=== PATIENT | female | born 1960 | race Caucasian/White ===

== ENCOUNTER 2017-04-30 08:51 | Observation (INO) ==
[2017-04-30] MEDS ORDERED: *HR* OxyCODONE/APAP 5/325 TABLET PO ONE ×2 (09:35→09:41)
--- NOTE | 2017-04-30 09:40 | Emergency Department Note ---
Disposition Clinical Impression: Intractable pain Disposition: Admitted As Inpatient Condition: Good Referrals: Jessica Gutierrez CNP [Primary Care Provider] - Forms: ED Satisfaction Letter General Adult HPI - General Chief complaint: ED Fall Stated complaint: Fall Time Seen by Provider: 04/30/17 09:00 Source: patient, EMS Limitations: no limitations - History of Present Illness HPI Narrative: Patient slipped on a slippery floor last night, sustaining an injury to her left leg. Went to bed about 15 minutes later with the help of her . Sustain a loss of consciousness. Pain is isolated to her left lower extremity. Workup this morning could not get out of bed due to pain. Denies numbness or weakness in the affected extremity or elsewhere in the body. No alcohol use this morning. No head neck or back pain. No chest pain or shortness of breath , no abdominal pain. No syncope or presyncope. She has chronic left hip pain due to bursitis but says it is worse this morning. Otherwise, the pain is worse in her knee and ankle, does not complain of pain in the mid thigh or lower leg. No pain in the upper extremities or in the right leg. Pain Scale: 7 - Related Data Home Medications Medication Instructions Recorded Confirmed Metoprolol 50 mg PO DAILY 08/22/15 08/22/15 Previous Rx's Medication Instructions Recorded Omeprazole [PriLOSEC] 20 mg PO DAILY@0730 capsule 08/26/15 Ondansetron [Zofran] 4 mg PO Q8HR PRN #20 tablet 08/26/15 Oxycodone HCl/Acetaminophen 1 each PO Q4-6H PRN #8 tablet 11/02/15 [Percocet 5-325 mg Tablet] Naproxen [Naprosyn] 250 mg PO BID PRN #14 tablet 07/02/16 Allergies Allergy/AdvReac Type Severity Reaction Status Date / Time acetaminophen [From Vicodin] Allergy Vomiting Verified 08/21/15 21:25 amitriptyline Allergy Vomiting Verified 08/21/15 21:25 codeine Allergy Vomiting Verified 08/21/15 21:25 hydrocodone [From Vicodin] Allergy Vomiting Verified 08/21/15 21:25 pentazocine [From Talwin] Allergy See Verified 08/21/15 21:25 Comments All systems ED: reviewed and negative except as stated. Past Medical History - Past Medical History Medical history: Reports: hypertension, osteoporosis Surgical history: Reports: appendectomy, orthopedic, other Psychiatric history: Reports: anxiety - Social History Smoking Status: Current every day smoker Smokeless Tobacco Status: No Alcohol use: Reports: rarely Drug use: Reports: marijuana Physical Exam Vital signs noted, please see nurses notes. General: Well-developed, well-nourished patient lying in bed who appears non- toxic. Head: Atraumatic, normocephalic, no signs of basilar skull fracture. Eyes: No ocular trauma. No proptosis. Extraocular motions intact. ENT: No facial or dental trauma. Neck: No midline tenderness, no stepoff or crepitus. Meets NEXUS criteria for clinical C-spine clearance. Not distracted by leg pain when I examine her neck. Back: No midline tenderness, no stepoff or crepitus. Chest: No crepitus or ecchymosis. Heart: Regular rate and rhythm. Lungs: Normal respiratory pattern without respiratory distress. Lungs clear to auscultation bilaterally. Abdomen: Soft, non-tender, non-distended, no guarding or peritoneal signs. No seatbelt sign. Pelvis: Stable, non-tender. Extremities: No deformity. Both arms and right leg are atraumatic. She has mild tenderness to palpation of the left hip. No tenderness to palpation of the proximal or mid thigh, nor at the distal thigh. Quadriceps contraction is intact. I do not feel a defect in the patellar tendon. No tenderness over the patella. She is tender over the proximal tibia on both sides. No tenderness to palpation of the lower leg, compartments are soft. She has bimalleolar tenderness at the posterior tip. No tenderness to palpation of the foot. The foot is well perfused. There is no ecchymosis, crepitus or deformity noted.. Neurologic: Awake, alert, oriented with normal speech and mental status, GCS 15. Pupils equal, round, reactive to light. Moves all extremities with 5/5 strength, light touch sensation normal and symmetrical in all extremities. No clinical evidence of intoxication. No altered level of alertness. No focal deficits or lateralizeing signs. Psychiatric: Extremely anxious and jumpy, especially when I approach to examine her leg. Skin: Warm and dry, no lacerations requiring sutures or sharath. - General Limitations: no limitations General appearance: alert Course Vital Signs Temperature 98.2 F 04/30/17 08:54 Pulse Rate 109 04/30/17 08:54 Respiratory Rate 16 04/30/17 08:54 Blood Pressure 153/96 04/30/17 08:54 O2 Sat by Pulse Oximetry 94 04/30/17 08:54 Temperature 98.2 F 04/30/17 08:54 Pulse Rate 100 04/30/17 09:52 Respiratory Rate 16 04/30/17 09:52 Blood Pressure 153/106 04/30/17 09:52 O2 Sat by Pulse Oximetry 95 04/30/17 09:52 Oxygen Delivery Oxygen Delivery Room Air Medical Decision Making - MDM Narrative Medical decision making narrative: XRs negative for fracture. Exam repeated - still no joint effusion, no change in exam. No palpable patellar tendon defect. Hip is less concerning, when I range her hip it is her knee and ankle that hurt her more. She is quite histrionic, but she refuses to bear weight, and both she and her say she can't use crutches based on previous experience. I discussed the case in detail with Dr. Kelley (Orthopedics), who recommended admission, he will evaluate on the floor; she would probably benefit from PT. Hospitalist accepts for admission.
[2017-04-30] MEDS ORDERED: *HR* Morphine 2 MG/ML SYRINGE SQ STA (11:26)
[2017-04-30] MEDS ORDERED: *HR* Morphine 2 MG/ML SYRINGE IVP ONE (11:42)
[2017-04-30] MEDS ORDERED: Naloxone 0.4 MG/ML INJ IVP PRN (13:46)
[2017-04-30] MEDS ORDERED: Ondansetron 4 MG/2 ML VIAL IVP PRN (13:46)
--- NOTE | 2017-04-30 14:05 | Internal Med History&Physical ---
Date of Encounter: 04/30/17 Time of Encounter: 13:00 Assessment and Plan (1) High ankle sprain of left lower extremity Current visit: Yes Status: Acute Qualifiers: Encounter type: initial encounter Qualified Code(s): S93.432A - Sprain of tibiofibular ligament of left ankle, initial encounter (2) Fall Current visit: Yes Status: Acute Qualifiers: Encounter type: initial encounter Qualified Code(s): W19.XXXA - Unspecified fall, initial encounter (3) Bursitis Current visit: Yes Status: Chronic Qualifiers: Bursitis location: hip Laterality: bilateral Qualified Code(s): M70.71 - Other bursitis of hip, right hip; M70.72 - Other bursitis of hip, left hip; M70.72 - Other bursitis of hip, left hip (4) HTN (hypertension), benign Current visit: Yes Status: Acute (5) Osteoporosis Current visit: Yes Status: Acute Qualifiers: Presence of current pathological fracture: without current pathological fracture Qualified Code(s): M81.0 - Age-related osteoporosis without current pathological fracture (6) Tobacco abuse Current visit: No Status: Chronic 56y/o female with hx of tobacco abuse, HTN, osteoporosis who presented to the ED after a fall. Xray of the ankle was negative for fracture but suggests ligament injury. She is still unable to weight bear in the ED despite analgesics , Ortho was notified and recommends pt should be admitted and they will be available for consult if needed. I will start patient on analgesics and antispasmodics. Will order a MRI of the ankle/LLE Will consult physical therapy to evaluate and treat Will order nicotine patch as needed for withdrawals. Resume anti-hypertensives Will place on inhalers prn for chest congestion. Anticipate discharge to home in 24 hours. Internal Medicine - H&P: HPI Chief complaint: Accidental Fall Admitted From: Home Plans for Post Hospital Care: Home History of present illness: Ms. Edwin Vyas is a 56 year old female who presented with a fall after she slipped and fell on newly polished hardwood floors. She said she was wearing stockings and decided to go up and grab something in another arie. She stepped from an area rug unto the hardwood floor, slipped and found herself on the floor. She said she did not hit her head and she did not loose consciousness but she was unable to get up afterwards because of severe pain in the left leg from her hip to her ankle. She says she has a history of bursitis and that has also flared up. She denies fever, chills, palpitations, chest pain or shortness of breath. Past Med Surg Social Fam HX - Past Medical History Medical history: hypertension, osteoporosis Psychiatric history: anxiety - Past Surgical History Surgical History: appendectomy, orthopedic, other - Social History Smoking Status: Current every day smoker Packs per day: 1 Smokeless Tobacco Status: No Alcohol use: rarely Drug use: marijuana - Family History Grandmother Adopted: No Living Status: Hx Family Cardiac Disorders: Yes Hx Family Respiratory Disorders: No Hx Family Cancer: No Hx Family GI Disorders: No Hx Family Endocrine Disorder: Yes (High Blood Sugars) Hx Family Neuromuscular Disorders: No Hx Family Neurologic Disorders: No Hx Family HEENT Disorders: Yes (Bad eyes) Hx Family Autoimmune Disorders: No Internal Medicine - H&P: Meds Alendronate Sodium [Fosamax] 70 mg PO QWEEK 04/30/17 [History] Lisinopril [Zestril] 10 mg PO DAILY 04/30/17 [History] Metoprolol XL (24 HR) Succ [Toprol XL] 50 mg PO DAILY 04/30/17 [History] 3 Allergy/AdvReac Type Severity Reaction Status Date / Time pentazocine [From Talwin] Allergy See Verified 04/30/17 12:20 Comments acetaminophen [From Vicodin] AdvReac Vomiting Verified 04/30/17 12:20 amitriptyline AdvReac Vomiting Verified 04/30/17 12:20 codeine AdvReac Vomiting Verified 04/30/17 12:20 hydrocodone [From Vicodin] AdvReac Vomiting Verified 04/30/17 12:20 All Systems PM: A 10-system review of systems was performed and is negative for pertinent findings except as documented above in the HPI. - Constitutional Constitutional: no chills, no fever(s), no night sweats - EENT Eyes: no change in vision, no discharge, no pain, no photophobia Ears: no ear discharge, no ear pain, no tinnitus Nose, mouth and throat: no dysphagia, no nasal discharge, no neck pain, no sore throat - Cardiovascular Cardiovascular ROS IM: no chest pain, no diaphoresis, no dyspnea, no lightheadedness, no palpitations, no syncope - Respiratory Respiratory: no cough, no dyspnea, no wheezing, no excessive phlegm production - Gastrointestinal Gastrointestinal: no abdominal pain, no diarrhea, no hematemesis, no hematochezia, no melena, no nausea, no vomiting - Genitourinary Genitourinary: no change in urinary stream, no dysuria, no flank pain, no hematuria - Musculoskeletal Musculoskeletal ROS IM: no numbness, no tingling - Integumentary Integumentary IM: no rash, no unusual bruising - Neurological Neurological ROS: no confusion, no convulsions, no focal weakness, no numbness, no tingling, no tremor(s) - Hematologic/Lymphatic Hematologic/Lymphatic: no easy bruising - Constitutional Vitals: Temp Pulse Resp BP Pulse Ox 98.2 F 81 16 158/98 97 04/30/17 08:54 04/30/17 12:44 04/30/17 12:44 04/30/17 12:44 04/30/17 12:44 General appearance: Present: A&O X 3 - Head Head exam: Present: atraumatic, normocephalic - Eye Eye exam: Present: PERRL, conjuntiva pink, sclera anicteric Pupils: Present: PERRL - Neck Neck exam general surgery: Present: supple, trachea midline. Absent: lymphadenopathy - Respiratory Respiratory exam: Present: CTAB. Absent: accessory muscle use, rales, rhonchi, wheezes - Cardiovascular Cardiovascular exam: Present: RRR, +S1, +S2. Absent: diastolic murmur, gallop, rubs, systolic murmur - GI/Abdominal GI/Abdominal exam: Present: normal bowel sounds, soft, no peritoneal signs. Absent: distended, tenderness - Extremities Exam Extremities exam: Present: warm, radial pulses palpable and symmetrical Additional comments: severe tenderness with touching the left lower extremity with extreme sensitivity to touch. no ankle swelling noted. Pt could not tolerate any form of Lower extremity motor examination. She could not dorsiflex her left ankle, reportedly due to pain. - Neurological Exam Neurological exam: Present: CN II-XII intact, oriented X3, no focal deficits. Absent: pronater drift, facial droop, speech deficit - Skin Skin exam: Present: dry, intact
[2017-04-30 14:49] LABS: Hematocrit 40.1 % (35.3-44.9); Hemoglobin 13.7 g/dL (11.5-15.4); Mean Corpuscular HGB Conc 34.2 g/dL (31.6-35.5); Mean Corpuscular Hemoglobin 35.3 pg (28.0-33.3); Mean Corpuscular Volume 103.4 fL (83.0-100.0); Mean Platelet Volume 9.1 fL (9.4-12.4); Platelet Count 209 K/mcL (140-400); Red Blood Count 3.88 M/mcL (3.82-4.97); Red Cell Distribution Width 13.8 % (11.5-14.5)
[2017-04-30 15:01] LABS: BUN/Creatinine Ratio 23 (6-26); Blood Urea Nitrogen 14 mg/dL (7-20); Calcium 9.1 mg/dL (8.6-10.8); Carbon Dioxide 26 mEq/L (19-29); Chloride 99 mEq/L (98-109); Glucose 100 mg/dL (70-99); Osmolality,Calculated 283 (280-300); Potassium 3.6 mEq/L (3.5-4.5); Sodium 136 mEq/L (136-145); eGFR For African Americans > 60 (> 60); eGFR For Non-African Americans > 60 (> 60)
[2017-04-30] MEDS: *HR* HYDROmorphone (PF) 1 MG/ML SYRINGE IVP PRN ×2 (15:13→21:15)
[2017-04-30] MEDS: Nicotine 21 MG PATCH.TD24 TD SCH (17:29)
[2017-04-30] MEDS ORDERED: *HR* Promethazine 25 MG/ML VIAL IVP ONE (21:48)
[2017-05-01] MEDS: *HR* HYDROmorphone (PF) 1 MG/ML SYRINGE IVP PRN (03:00)
[2017-05-01 05:55] LABS: BUN/Creatinine Ratio 18 (6-26); Blood Urea Nitrogen 11 mg/dL (7-20); Calcium 9.2 mg/dL (8.6-10.8); Carbon Dioxide 24 mEq/L (19-29); Chloride 100 mEq/L (98-109); Glucose 94 mg/dL (70-99); Osmolality,Calculated 279 (280-300); Sodium 135 mEq/L (136-145); eGFR For African Americans > 60 (> 60); eGFR For Non-African Americans > 60 (> 60)
[2017-05-01 05:57] LABS: Potassium 4.1 mEq/L (3.5-4.5)
[2017-05-01 06:06] LABS: Basophils % 0.6 %; Eosinophils # 0.2 K/mcL (0.0-0.6); Eosinophils % 3.1 %; Hematocrit 40.6 % (35.3-44.9); Hemoglobin 13.5 g/dL (11.5-15.4); Immature Granulocytes % 0.4 % (0-4); Lymphocytes # 1.3 K/mcL (0.6-4.6); Lymphocytes % 24.9 %; Mean Corpuscular HGB Conc 33.3 g/dL (31.6-35.5); Mean Corpuscular Volume 105.2 fL (83.0-100.0); Mean Platelet Volume 9.9 fL (9.4-12.4); Monocytes # 0.5 K/mcL (0.0-1.3); Monocytes % 9.8 %; Neutrophils # 3.2 K/mcL (1.6-8.9); Platelet Count 203 K/mcL (140-400); Red Blood Count 3.86 M/mcL (3.82-4.97); Red Cell Distribution Width 13.5 % (11.5-14.5); Segmented Neutrophils % 61.2 %
[2017-05-01] MEDS: Nicotine 21 MG PATCH.TD24 TD SCH (08:58)
[2017-05-01] MEDS ORDERED: Metoprolol XL (24 HR) Succ 50 MG TAB.ER.24H PO SCH (09:00)
--- NOTE | 2017-05-01 09:23 | Orthopedics Progress Note ---
Date of Encounter: 05/01/17 Time of Encounter: 09:20 - Assessment and Plan (1) Intractable pain Current Visit: Yes Status: Acute Imaging was reviewed and showed no signs of acute fracture/dislocation. No orthopedic surgical intervention needed. Ambulate with PT. Will s/o. Subjective Interval history: 56 yo F with left sided lower extremity pain after a fall yesterday. X-rays in ER showed no fx of hip/knee/ankle. Patient with diffuse pain and unable to ambulate so was admitted for observation. Patient complains of pain over left leg today. No swelling of hip/knee/ankle. Objective Vital signs: Vital Signs Temp Pulse Resp BP Pulse Ox 05/01/17 08:01 97.9 F 77 16 143/82 97 05/01/17 05:32 98.1 F 76 18 165/93 98 04/30/17 23:45 98.7 F 70 16 161/87 95 04/30/17 19:52 98.1 F 77 16 154/92 97 04/30/17 14:54 98.2 F 76 16 155/82 95 04/30/17 12:44 81 16 158/98 97 Intake and Output 04/30/17 05/01/17 05/01/17 23:59 07:59 15:59 Output Total 350 / 350 50 / 50 Balance -350 / -350 -50 / -50 Output: Urine 350 / 350 50 / 50 Other: Meal Refused # Voids 1 Weight 54.1 kg Patient Weight 05/01/17 23:59 Weight 54.1 kg Consult Exam: Constitutional -Vitals reviewed -The patient is well developed and well nourished. -Mood is pleasant. -The patient is well groomed. Psychiatric -The patient is fully alert and oriented x 3. Respiratory: -Respiratory effort normal Abdomen: -Soft abdomen -Non tender -Non distended: Left upper extremity: -No deformities. The overlying skin is intact. No obvious signs of acute trauma. -No tenderness to palpation throughout. -No significant pain with passive motion of the shoulder, elbow, wrist, and fingers within the limits of the bed. -Able to make an "OK" sign, cross the index and long fingers, and extend the thumb. -Sensation grossly intact to light touch throughout the median, radial, and ulnar distributions. -Radial pulse is present; Fingers have good capillary refill. Right upper extremity: -No deformities. The overlying skin is intact. No obvious signs of acute trauma. -No tenderness to palpation throughout. -No significant pain with passive motion of the shoulder, elbow, wrist, and fingers within the limits of the bed. -Able to make an "OK" sign, cross the index and long fingers, and extend the thumb. -Sensation grossly intact to light touch throughout the median, radial, and ulnar distributions. -Radial pulse is present; Fingers have good capillary refill. Left lower extremity: -No deformities. The overlying skin is intact. No obvious signs of acute trauma. -Diffusely TTP throughout lower extremity. -Exam limited, patient refuses to allow ROM of the left leg -Sensation is grossly intact to light touch throughout the sural, saphenous, superficial peroneal, and deep peroneal distributions. -Toes have good capillary refill. Right lower extremity: -No deformities. The overlying skin is intact. No obvious signs of acute trauma. -No tenderness to palpation throughout. -No pain with passive motion of the hip, knee, ankle, and toes within the limits of the bed. -No pain with axial loading of the thigh. -Able to dorsiflex and plantarflex the ankle and toes. -Sensation is grossly intact to light touch throughout the sural, saphenous, superficial peroneal, and deep peroneal distributions. -Toes have good capillary refill. - Diagnostic Results Hip x-ray: report reviewed, image reviewed Knee x-ray: report reviewed, image reviewed Ankle x-ray: report reviewed, image reviewed Ankle MRI: report reviewed, image reviewed - Labs CBC & BMP: 05/01/17 05:24 05/01/17 05:24 Labs: Abnormal lab results MCV 105.2 fL (83.0-100.0) H 05/01/17 05:24 MCH 35.0 pg (28.0-33.3) H 05/01/17 05:24 Sodium 135 mEq/L (136-145) L 05/01/17 05:24 Calculated Osmolality 279 (280-300) L 05/01/17 05:24 Consult Discharge Plan - Plan Referrals: Jessica Gutierrez, AMITA [Primary Care Provider] -
[2017-05-01 11:37] VITALS: BP 116/75
--- NOTE | 2017-05-01 12:27 | Discharge Summary ---
Date of Encounter: 05/01/17 Time of Encounter: 09:00 - Discharge Diagnosis (1) Fall Priority: Primary Status: Acute Qualifiers: Encounter type: initial encounter Qualified Code(s): W19.XXXA - Unspecified fall, initial encounter (2) Ankle pain Priority: Primary Status: Acute Qualifiers: Chronicity: acute Laterality: left Qualified Code(s): M25.572 - Pain in left ankle and joints of left foot (3) Tobacco abuse Priority: Secondary Status: Chronic (4) HTN (hypertension), benign Priority: Secondary Status: Chronic (5) Osteoporosis Priority: Secondary Status: Chronic Qualifiers: Osteoporosis type: unspecified Presence of current pathological fracture: without current pathological fracture Qualified Code(s): M81.0 - Age-related osteoporosis without current pathological fracture - Discharge Medications Prescriptions: Cyclobenzaprine [Flexeril] 10 mg PO TID PRN #30 tablet PRN Reason: Spasms Home Medications: Alendronate Sodium [Fosamax] 70 mg PO QWEEK 04/30/17 [History] Lisinopril [Zestril] 10 mg PO DAILY 04/30/17 [History] Metoprolol XL (24 HR) Succ [Toprol Xl] 50 mg PO DAILY 04/30/17 [History] Cyclobenzaprine [Flexeril] 10 mg PO TID PRN #30 tablet 05/01/17 [Rx] Allergies/Adverse Reactions: 3 Allergy/AdvReac Type Severity Reaction Status Date / Time pentazocine [From Talwin] Allergy See Verified 04/30/17 12:20 Comments acetaminophen [From Vicodin] AdvReac Vomiting Verified 04/30/17 12:20 amitriptyline AdvReac Vomiting Verified 04/30/17 12:20 codeine AdvReac Vomiting Verified 04/30/17 12:20 hydrocodone [From Vicodin] AdvReac Vomiting Verified 04/30/17 12:20 Procedures/tests Complete & Pending: Procedures Performed prior 72 hours Category Date Time Status MR ankle LT wo con [MR] Stat MRI 04/30/17 14:31 Completed MR foot LT wo con [MR] Stat MRI 04/30/17 14:31 Completed Date of admission: 04/30/17 12:32 Primary care physician: Jessica Gutierrez Consults: 04/30/17 13:49 Consult to Physical Therapy [CONS] Routine Comment: Evaluate, develop and implement POC Reason for Consult: diff ambulating Discharging clinician: Susanna Pearce Anticipated date of discharge: 05/01/17 - Patient Status Disposition: Home, Self-Care Condition: Good Functional capacity at discharge: independent ambulation Overall status at discharge: patient is progressing back to baseline - Discharge Instructions Instructions: Ankle Sprain (DC) Follow Up With: Maryanne Mojica CNP [Advanced Practice Nurse] - 05/08/17 10:15 am ([place] [facility]) Additional Instructions: F/up with outpatient PT - Diet and Activity Activity: as per physical therapy, increase activity as tolerated Diet: low fat, low cholesterol, low salt diet Hospital course: Ms. Edwin Vyas is a 56 year old female with the above medical problems, admitted with left knee and ankle pain following a mechanical fall after slipping on her floor. Initial left hip, knee and ankle XRays done in the ER showed no acute fracture/dislocation/trauma. Labs were WNL. MRI left foot was done which showed no acute trauma. Orthopedics evaluation was completed and recommended no further intervention. PT/OT evaluation recommend outpatient therapy and she is being discharged in a stable condition. - Time Spent with Patient Total time spent providing and/or coordinating discharge services: Greater than 30 minutes (40 min) - Constitutional Vitals: Temp Pulse Resp BP Pulse Ox 97.9 F 76 16 116/75 96 05/01/17 11:35 05/01/17 11:35 05/01/17 11:35 05/01/17 11:35 05/01/17 11:35 General appearance: Present: cachectic, A&O X 3, answers questions appropriately - Extremities Exam Extremities exam: Present: warm, radial pulses palpable and symmetrical. Absent : calf tenderness, cyanotic, pedal edema Additional comments: tenderness over medial left knee, lower leg and ankle; no swelling or erythema
== END 2017-05-01 13:38 | disposition home or self-care (01) ==
LOC: 3ANU 08:51 → EMEROO 08:51 → 3ANU 13:00
PROVIDERS: ADMIT Family Medicine; ATTEND Internal Medicine

== ENCOUNTER 2021-04-28 11:01 | Inpatient (IN) ==
[2021-04-28] MEDS ORDERED: *HR* FentaNYL (PF) 100 MCG/2 ML VIAL IVP ONE (11:13)
[2021-04-28] MEDS ORDERED: *HR* HYDROmorphone (PF) 1 MG/ML SYRINGE IVP ONE (12:30)
[2021-04-28 13:45] LABS: Basophils % 0.1 %; Eosinophils % 0.3 %; Hematocrit 43.5 % (35.3-44.9); Hemoglobin 14.5 g/dL (11.5-15.4); Immature Granulocytes % 0.3 % (0-4); Lymphocytes # 0.8 K/mcL (0.6-4.6); Lymphocytes % 9.1 %; Mean Corpuscular HGB Conc 33.3 g/dL (31.6-35.5); Mean Corpuscular Hemoglobin 34.3 pg (28.0-33.3); Mean Corpuscular Volume 102.8 fL (83.0-100.0); Mean Platelet Volume 10.8 fL (9.4-12.4); Monocytes # 0.5 K/mcL (0.0-1.3); Monocytes % 5.1 %; Neutrophils # 7.9 K/mcL (1.6-8.9); Platelet Count 199 K/mcL (140-400); Red Blood Count 4.23 M/mcL (3.82-4.97); Red Cell Distribution Width 12.1 % (11.5-14.5); Segmented Neutrophils % 85.1 %; White Blood Count 9.2 K/mcL (4.3-11.1)
[2021-04-28] MEDS ORDERED: Ondansetron 4 MG/2 ML VIAL ONE (13:51)
[2021-04-28 14:02] LABS: BUN/Creatinine Ratio 26 (6-26); Blood Urea Nitrogen 14 mg/dL (6-20); Calcium 9.8 mg/dL (8.6-10.3); Carbon Dioxide 22 mEq/L (23-29); Chloride 103 mEq/L (98-107); Glucose 101 mg/dL (70-105); Osmolality,Calculated 285 (280-300); Potassium 3.7 mEq/L (3.5-5.1); Sodium 137 mEq/L (136-145); eGFR For African Americans > 60 (> 60); eGFR For Non-African Americans > 60 (> 60)
[2021-04-28] MEDS ORDERED: Ondansetron ODT 4 MG TAB.RAPDIS SL PRN (14:51)
[2021-04-28] MEDS ORDERED: *HR* Promethazine 25 MG/ML VIAL IM PRN (14:51)
[2021-04-28] MEDS ORDERED: Naloxone 0.4 MG/ML INJ IVP PRN (14:51)
[2021-04-28] MEDS ORDERED: Mag Hydrox/Al Hydrox/Simeth 30 ML UDC PO PRN (14:51)
[2021-04-28] MEDS ORDERED: Acetaminophen 325 MG TABLET PO PRN (14:51)
[2021-04-28] MEDS ORDERED: CeFAZolin 2,000 MG/120 ML BAG IVPB SCH (16:00)
[2021-04-28 16:30] LABS: Influenza A PCR Negative (Negative); Influenza B PCR Negative (Negative); Resp. Syncytial Virus PCR Negative (Negative)
[2021-04-28 16:37] LABS: SARS-CoV-2 by PCR (In House) Negative (Negative)
[2021-04-28] MEDS: Metoprolol XL (24 HR) Succ 50 MG TAB.ER.24H PO SCH (17:09)
[2021-04-28] MEDS: *HR* HYDROmorphone (PF) 1 MG/ML SYRINGE IVP PRN ×2 (17:15→21:24)
[2021-04-28] MEDS ORDERED: Nitroglycerin 0.4 MG TAB.SUBL SL PRN (23:11)
[2021-04-28] MEDS ORDERED: Ketorolac 30 MG/ML VIAL IVP ONE (23:59)
[2021-04-29] MEDS: Ondansetron 4 MG/2 ML VIAL IVP PRN ×3 (00:17→18:43)
[2021-04-29] MEDS: *HR* HYDROmorphone (PF) 1 MG/ML SYRINGE IVP PRN ×3 (04:55→22:50)
[2021-04-29 06:25] LABS: Basophils % 0.2 %; Eosinophils % 0.2 %; Hematocrit 38.9 % (35.3-44.9); Immature Granulocytes % 0.4 % (0-4); Lymphocytes # 0.9 K/mcL (0.6-4.6); Lymphocytes % 16.9 %; Mean Corpuscular HGB Conc 32.6 g/dL (31.6-35.5); Mean Platelet Volume 10.4 fL (9.4-12.4); Monocytes # 0.6 K/mcL (0.0-1.3); Monocytes % 11.4 %; Neutrophils # 3.9 K/mcL (1.6-8.9); Platelet Count 175 K/mcL (140-400); Red Blood Count 3.74 M/mcL (3.82-4.97); Segmented Neutrophils % 70.9 %; White Blood Count 5.5 K/mcL (4.3-11.1)
[2021-04-29 06:37] LABS: Hemoglobin 12.7 g/dL (11.5-15.4)
[2021-04-29 06:44] LABS: BUN/Creatinine Ratio 22 (6-26); Blood Urea Nitrogen 12 mg/dL (6-20); Calcium 9.3 mg/dL (8.6-10.3); Carbon Dioxide 28 mEq/L (23-29); Chloride 100 mEq/L (98-107); Glucose 122 mg/dL (70-105); Osmolality,Calculated 283 (280-300); Potassium 3.7 mEq/L (3.5-5.1); Sodium 136 mEq/L (136-145); eGFR For African Americans > 60 (> 60); eGFR For Non-African Americans > 60 (> 60)
[2021-04-29] MEDS ORDERED: *HR* Propofol 200 MG/20 ML VIAL IVP ONE (07:11)
[2021-04-29] MEDS ORDERED: Ondansetron 4 MG/2 ML VIAL ONE (07:11)
[2021-04-29] MEDS ORDERED: Lidocaine -MPF 2% 5 ML VIAL ONE (07:11)
[2021-04-29] MEDS ORDERED: *HR* FentaNYL (PF) 100 MCG/2 ML VIAL ONE (07:11)
[2021-04-29] MEDS: Metoprolol XL (24 HR) Succ 50 MG TAB.ER.24H PO SCH (07:17)
[2021-04-29] MEDS ORDERED: CeFAZolin Syr 2,000MG/20 ML 2,000 MG/20 ML SYRINGE IVPB ONE (07:42)
[2021-04-29] MEDS ORDERED: Ringers Solution, Lactated 1,000 ML IVC SCH (07:45)
[2021-04-29] MEDS ORDERED: *HR* HYDROmorphone PF 0.5 MG/0.5 ML SYRINGE IVP PRN ×2 (07:51→10:28)
[2021-04-29] MEDS ORDERED: Acetaminophen IV 1,000 MG/100 ML BAG IVPB ONE (08:21)
[2021-04-29] MEDS ORDERED: Ketorolac 30 MG/ML VIAL ONE (08:49)
[2021-04-29] MEDS: *HR* FentaNYL (PF) 100 MCG/2 ML VIAL IVP PRN ×4 (09:20→09:36)
[2021-04-29] MEDS ORDERED: Scopolamine Patch 1.5 MG PATCH.TD72 TD ONE (09:33)
[2021-04-29] MEDS ORDERED: Acetaminophen 325 MG TABLET PO PRN (10:28)
[2021-04-29] MEDS ORDERED: Nitroglycerin 0.4 MG TAB.SUBL SL PRN (10:28)
[2021-04-29] MEDS ORDERED: *HR* Midazolam HCl 2 MG/2 ML VIAL IVP PRN (10:28)
[2021-04-29] MEDS ORDERED: Naloxone 0.4 MG/ML INJ IVP PRN (10:28)
[2021-04-29] MEDS ORDERED: Mag Hydrox/Al Hydrox/Simeth 30 ML UDC PO PRN (10:28)
[2021-04-29] MEDS: *HR* Promethazine 25 MG/ML VIAL IM PRN (11:06)
[2021-04-29] MEDS: Ringers Solution, Lactated 1,000 ML IVC SCH (11:37)
[2021-04-29] MEDS: CeFAZolin 2 GM/120 ML BAG IVPB SCH (16:26)
[2021-04-29] MEDS: Nicotine 21 MG PATCH.TD24 TD SCH (17:41)
[2021-04-30] MEDS: CeFAZolin 2 GM/120 ML BAG IVPB SCH (00:03)
[2021-04-30 05:16] LABS: Immature Granulocytes % 0.4 % (0-4); Lymphocytes # 0.8 K/mcL (0.6-4.6); Lymphocytes % 8.2 %; Mean Corpuscular HGB Conc 33.6 g/dL (31.6-35.5); Mean Corpuscular Hemoglobin 34.7 pg (28.0-33.3); Mean Corpuscular Volume 103.1 fL (83.0-100.0); Mean Platelet Volume 10.5 fL (9.4-12.4); Monocytes # 0.8 K/mcL (0.0-1.3); Monocytes % 7.5 %; Neutrophils # 8.5 K/mcL (1.6-8.9); Platelet Count 169 K/mcL (140-400); Red Cell Distribution Width 11.8 % (11.5-14.5); Segmented Neutrophils % 83.9 %
[2021-04-30 05:17] LABS: Hemoglobin 11.1 g/dL (11.5-15.4); White Blood Count 10.1 K/mcL (4.3-11.1)
[2021-04-30 05:54] LABS: BUN/Creatinine Ratio 26 (6-26); Blood Urea Nitrogen 12 mg/dL (6-20); Carbon Dioxide 28 mEq/L (23-29); Chloride 103 mEq/L (98-107); Glucose 129 mg/dL (70-105); Osmolality,Calculated 285 (280-300); Potassium 3.9 mEq/L (3.5-5.1); Sodium 137 mEq/L (136-145); eGFR For African Americans > 60 (> 60); eGFR For Non-African Americans > 60 (> 60)
[2021-04-30] MEDS: Metoprolol XL (24 HR) Succ 50 MG TAB.ER.24H PO SCH (08:33)
[2021-04-30] MEDS: Nicotine 21 MG PATCH.TD24 TD SCH (08:33)
[2021-04-30] MEDS: Aspirin Enteric Coated 325 MG Tablet PO SCH ×2 (08:33→08:35)
[2021-04-30] MEDS: *HR* HYDROmorphone (PF) 1 MG/ML SYRINGE IVP PRN ×4 (11:08→23:39)
[2021-04-30] MEDS: Ringers Solution, Lactated 1,000 ML IVC SCH (15:18)
[2021-04-30] MEDS ORDERED: *HR* HYDROcodone/Acet 5/325 mg TABLET PO PRN (22:07)
[2021-04-30] MEDS: *HR* OxyCODONE Immed Rel 5 MG TABLET PO PRN (22:19)
[2021-05-01] MEDS: Metoprolol XL (24 HR) Succ 50 MG TAB.ER.24H PO SCH (07:33)
[2021-05-01] MEDS: Aspirin Enteric Coated 325 MG Tablet PO SCH (07:33)
[2021-05-01] MEDS: Nicotine 21 MG PATCH.TD24 TD SCH (07:33)
[2021-05-01 08:17] LABS: Basophils % 0.3 %; Eosinophils % 0.3 %; Hematocrit 32.8 % (35.3-44.9); Hemoglobin 10.7 g/dL (11.5-15.4); Immature Granulocytes % 0.3 % (0-4); Lymphocytes # 1.3 K/mcL (0.6-4.6); Lymphocytes % 19.1 %; Mean Corpuscular HGB Conc 32.6 g/dL (31.6-35.5); Mean Corpuscular Hemoglobin 33.8 pg (28.0-33.3); Mean Corpuscular Volume 103.5 fL (83.0-100.0); Mean Platelet Volume 10.6 fL (9.4-12.4); Monocytes # 0.8 K/mcL (0.0-1.3); Monocytes % 11.3 %; Neutrophils # 4.8 K/mcL (1.6-8.9); Platelet Count 146 K/mcL (140-400); Red Blood Count 3.17 M/mcL (3.82-4.97); Red Cell Distribution Width 11.9 % (11.5-14.5); Segmented Neutrophils % 68.7 %
[2021-05-01 08:35] LABS: BUN/Creatinine Ratio 33 (6-26); Blood Urea Nitrogen 14 mg/dL (6-20); Carbon Dioxide 28 mEq/L (23-29); Chloride 100 mEq/L (98-107); Glucose 101 mg/dL (70-105); Osmolality,Calculated 283 (280-300); Potassium 3.7 mEq/L (3.5-5.1); Sodium 136 mEq/L (136-145); eGFR For African Americans > 60 (> 60); eGFR For Non-African Americans > 60 (> 60)
[2021-05-01] MEDS: *HR* HYDROmorphone (PF) 1 MG/ML SYRINGE IVP PRN ×4 (09:39→22:35)
[2021-05-01] MEDS: Ringers Solution, Lactated 1,000 ML IVC SCH (10:49)
[2021-05-01] MEDS: *HR* OxyCODONE Immed Rel 5 MG TABLET PO PRN (12:49)
[2021-05-01] MEDS: Apixaban 5 MG TABLET PO SCH (17:12)
[2021-05-02] MEDS: *HR* HYDROmorphone (PF) 1 MG/ML SYRINGE IVP PRN ×6 (02:53→20:29)
[2021-05-02 03:25] LABS: Basophils % 0.3 %; Eosinophils # 0.1 K/mcL (0.0-0.6); Eosinophils % 0.9 %; Hematocrit 35.5 % (35.3-44.9); Hemoglobin 11.7 g/dL (11.5-15.4); Immature Granulocytes % 0.3 % (0-4); Lymphocytes # 1.2 K/mcL (0.6-4.6); Lymphocytes % 17.7 %; Mean Corpuscular Volume 103.2 fL (83.0-100.0); Mean Platelet Volume 10.9 fL (9.4-12.4); Monocytes # 0.8 K/mcL (0.0-1.3); Neutrophils # 4.7 K/mcL (1.6-8.9); Platelet Count 122 K/mcL (140-400); Red Blood Count 3.44 M/mcL (3.82-4.97); Red Cell Distribution Width 11.7 % (11.5-14.5); Segmented Neutrophils % 68.8 %; White Blood Count 6.9 K/mcL (4.3-11.1)
[2021-05-02 03:40] LABS: BUN/Creatinine Ratio 28 (6-26); Blood Urea Nitrogen 11 mg/dL (6-20); Carbon Dioxide 24 mEq/L (23-29); Chloride 99 mEq/L (98-107); Glucose 100 mg/dL (70-105); Osmolality,Calculated 275 (280-300); Potassium 3.8 mEq/L (3.5-5.1); Sodium 133 mEq/L (136-145); eGFR For African Americans > 60 (> 60); eGFR For Non-African Americans > 60 (> 60)
[2021-05-02] MEDS: *HR* OxyCODONE Immed Rel 5 MG TABLET PO PRN (06:36)
[2021-05-02] MEDS: Metoprolol XL (24 HR) Succ 50 MG TAB.ER.24H PO SCH (08:32)
[2021-05-02] MEDS: Apixaban 5 MG TABLET PO SCH (08:32)
[2021-05-02] MEDS: Nicotine 21 MG PATCH.TD24 TD SCH (08:35)
[2021-05-02] MEDS ORDERED: Ketorolac 30 MG/ML VIAL IVP ONE (11:08)
[2021-05-02] MEDS: Sennosides/Docusate Sodium TABLET PO SCH (12:26)
[2021-05-02] MEDS: Ringers Solution, Lactated 1,000 ML IVC SCH (12:26)
[2021-05-03] MEDS: *HR* HYDROmorphone (PF) 1 MG/ML SYRINGE IVP PRN ×7 (00:01→21:39)
[2021-05-03] MEDS: Apixaban 5 MG TABLET PO SCH ×3 (01:03→21:39)
[2021-05-03 05:09] LABS: Basophils % 0.1 %; Eosinophils % 0.4 %; Hematocrit 29.5 % (35.3-44.9); Hemoglobin 10.4 g/dL (11.5-15.4); Immature Granulocytes % 0.4 % (0-4); Lymphocytes % 13.4 %; Mean Corpuscular HGB Conc 35.3 g/dL (31.6-35.5); Mean Corpuscular Volume 99.3 fL (83.0-100.0); Mean Platelet Volume 10.4 fL (9.4-12.4); Monocytes # 0.9 K/mcL (0.0-1.3); Monocytes % 11.5 %; Neutrophils # 5.7 K/mcL (1.6-8.9); Platelet Count 156 K/mcL (140-400); Red Blood Count 2.97 M/mcL (3.82-4.97); Red Cell Distribution Width 11.4 % (11.5-14.5); Segmented Neutrophils % 74.2 %; White Blood Count 7.7 K/mcL (4.3-11.1)
[2021-05-03 05:44] LABS: BUN/Creatinine Ratio 26 (6-26); Blood Urea Nitrogen 10 mg/dL (6-20); Carbon Dioxide 25 mEq/L (23-29); Chloride 98 mEq/L (98-107); Glucose 126 mg/dL (70-105); Osmolality,Calculated 277 (280-300); Potassium 3.7 mEq/L (3.5-5.1); Sodium 133 mEq/L (136-145); eGFR For African Americans > 60 (> 60); eGFR For Non-African Americans > 60 (> 60)
[2021-05-03] MEDS: Nicotine 21 MG PATCH.TD24 TD SCH (08:05)
[2021-05-03] MEDS: Sennosides/Docusate Sodium TABLET PO SCH (08:05)
[2021-05-03] MEDS: Metoprolol XL (24 HR) Succ 50 MG TAB.ER.24H PO SCH (08:05)
[2021-05-03] MEDS: *HR* OxyCODONE Immed Rel 5 MG TABLET PO PRN ×3 (09:34→22:55)
[2021-05-03] MEDS: *HR* Promethazine 25 MG/ML VIAL IM PRN (12:18)
[2021-05-03] MEDS: Ondansetron 4 MG/2 ML VIAL IVP PRN (22:59)
[2021-05-04] MEDS: *HR* HYDROmorphone (PF) 1 MG/ML SYRINGE IVP PRN ×4 (04:36→17:19)
[2021-05-04 07:24] LABS: Basophils % 0.2 %; Eosinophils # 0.1 K/mcL (0.0-0.6); Eosinophils % 1.7 %; Hematocrit 28.3 % (35.3-44.9); Hemoglobin 9.6 g/dL (11.5-15.4); Immature Granulocytes % 0.3 % (0-4); Lymphocytes # 0.7 K/mcL (0.6-4.6); Lymphocytes % 11.4 %; Mean Corpuscular HGB Conc 33.9 g/dL (31.6-35.5); Mean Corpuscular Hemoglobin 33.9 pg (28.0-33.3); Mean Platelet Volume 10.2 fL (9.4-12.4); Monocytes # 0.9 K/mcL (0.0-1.3); Monocytes % 14.6 %; Neutrophils # 4.3 K/mcL (1.6-8.9); Platelet Count 171 K/mcL (140-400); Red Blood Count 2.83 M/mcL (3.82-4.97); Red Cell Distribution Width 11.5 % (11.5-14.5); Segmented Neutrophils % 71.8 %
[2021-05-04 07:41] LABS: BUN/Creatinine Ratio 26 (6-26); Blood Urea Nitrogen 10 mg/dL (6-20); Calcium 8.9 mg/dL (8.6-10.3); Carbon Dioxide 30 mEq/L (23-29); Chloride 96 mEq/L (98-107); Glucose 129 mg/dL (70-105); Osmolality,Calculated 277 (280-300); Potassium 3.6 mEq/L (3.5-5.1); Sodium 133 mEq/L (136-145); eGFR For African Americans > 60 (> 60); eGFR For Non-African Americans > 60 (> 60)
[2021-05-04] MEDS: Apixaban 5 MG TABLET PO SCH ×2 (08:07→20:23)
[2021-05-04] MEDS: *HR* OxyCODONE Immed Rel 5 MG TABLET PO PRN ×2 (08:07→14:06)
[2021-05-04] MEDS: Metoprolol XL (24 HR) Succ 50 MG TAB.ER.24H PO SCH (08:07)
[2021-05-04] MEDS: Nicotine 21 MG PATCH.TD24 TD SCH (08:08)
[2021-05-04] MEDS: Ringers Solution, Lactated 1,000 ML IVC SCH ×2 (08:08→11:49)
[2021-05-04] MEDS: Sennosides/Docusate Sodium TABLET PO SCH (08:11)
[2021-05-04] MEDS: Gabapentin 300 MG CAPSULE PO SCH ×3 (11:48→21:02)
[2021-05-04] MEDS ORDERED: *HR* LORazepam 2 MG/ML VIAL IVP ONE (15:16)
[2021-05-04] MEDS: *HR* OxyCODONE Immed Rel 5 MG TABLET PO SCH (20:23)
[2021-05-04] MEDS: tiZANidine 4 MG TABLET PO SCH (21:02)
[2021-05-04] MEDS ORDERED: *HR* LORazepam 2 MG/ML VIAL IVP PRN (21:12)
[2021-05-04] MEDS ORDERED: Morphine Sulfate 2 MG/ML SYRINGE IVP ONE (21:49)
[2021-05-05] MEDS: *HR* OxyCODONE Immed Rel 5 MG TABLET PO SCH ×4 (03:32→20:15)
[2021-05-05 07:43] LABS: Basophils % 0.2 %; Eosinophils # 0.1 K/mcL (0.0-0.6); Eosinophils % 2.2 %; Hematocrit 28.9 % (35.3-44.9); Hemoglobin 9.6 g/dL (11.5-15.4); Immature Granulocytes % 0.5 % (0-4); Lymphocytes # 0.9 K/mcL (0.6-4.6); Lymphocytes % 15.9 %; Mean Corpuscular HGB Conc 33.2 g/dL (31.6-35.5); Mean Corpuscular Hemoglobin 33.4 pg (28.0-33.3); Mean Corpuscular Volume 100.7 fL (83.0-100.0); Mean Platelet Volume 10.1 fL (9.4-12.4); Monocytes # 0.7 K/mcL (0.0-1.3); Monocytes % 12.4 %; Neutrophils # 4.1 K/mcL (1.6-8.9); Platelet Count 217 K/mcL (140-400); Red Blood Count 2.87 M/mcL (3.82-4.97); Red Cell Distribution Width 11.5 % (11.5-14.5); Segmented Neutrophils % 68.8 %; White Blood Count 5.9 K/mcL (4.3-11.1)
[2021-05-05 08:03] LABS: BUN/Creatinine Ratio 37 (6-26); Blood Urea Nitrogen 14 mg/dL (6-20); Calcium 9.3 mg/dL (8.6-10.3); Carbon Dioxide 29 mEq/L (23-29); Chloride 97 mEq/L (98-107); Glucose 110 mg/dL (70-105); Osmolality,Calculated 279 (280-300); Potassium 3.8 mEq/L (3.5-5.1); Sodium 134 mEq/L (136-145); eGFR For African Americans > 60 (> 60); eGFR For Non-African Americans > 60 (> 60)
[2021-05-05] MEDS: tiZANidine 4 MG TABLET PO SCH ×3 (08:23→20:15)
[2021-05-05] MEDS ORDERED: *HR* LORazepam 0.5 MG TABLET PO PRN (08:23)
[2021-05-05] MEDS: Apixaban 5 MG TABLET PO SCH ×2 (08:23→20:16)
[2021-05-05] MEDS: Metoprolol XL (24 HR) Succ 50 MG TAB.ER.24H PO SCH (08:23)
[2021-05-05] MEDS: Sennosides/Docusate Sodium TABLET PO SCH (08:24)
[2021-05-05] MEDS: Nicotine 21 MG PATCH.TD24 TD SCH (08:24)
[2021-05-05] MEDS: Gabapentin 300 MG CAPSULE PO SCH ×3 (08:24→20:15)
[2021-05-05] MEDS ORDERED: *HR* HYDROmorphone (PF) 1 MG/ML SYRINGE IVP PRN (08:24)
[2021-05-05] MEDS: *HR* OxyCODONE Immed Rel 5 MG TABLET PO PRN (10:06)
[2021-05-05] MEDS: Ringers Solution, Lactated 1,000 ML IVC SCH (11:18)
[2021-05-05] MEDS: Ondansetron 4 MG/2 ML VIAL IVP PRN (11:30)
[2021-05-05] MEDS: *HR* Promethazine 25 MG/ML VIAL IM PRN (13:40)
[2021-05-06] MEDS: *HR* OxyCODONE Immed Rel 5 MG TABLET PO SCH ×2 (01:45→07:59)
[2021-05-06] MEDS: tiZANidine 4 MG TABLET PO SCH ×3 (09:02→20:39)
[2021-05-06] MEDS: Metoprolol XL (24 HR) Succ 50 MG TAB.ER.24H PO SCH (09:02)
[2021-05-06] MEDS: Nicotine 21 MG PATCH.TD24 TD SCH (09:03)
[2021-05-06] MEDS: Apixaban 5 MG TABLET PO SCH ×2 (09:03→20:39)
[2021-05-06] MEDS: Gabapentin 300 MG CAPSULE PO SCH ×3 (09:03→20:39)
[2021-05-06] MEDS: Ringers Solution, Lactated 1,000 ML IVC SCH (11:45)
[2021-05-06] MEDS: hydrOXYzine pamoate 25 MG CAPSULE PO PRN (15:59)
[2021-05-06 16:40] LABS: Basophils % 0.2 %; Eosinophils # 0.2 K/mcL (0.0-0.6); Eosinophils % 3.1 %; Hemoglobin 8.5 g/dL (11.5-15.4); Immature Granulocytes % 0.3 % (0-4); Lymphocytes # 0.8 K/mcL (0.6-4.6); Lymphocytes % 13.5 %; Mean Platelet Volume 9.7 fL (9.4-12.4); Monocytes # 0.7 K/mcL (0.0-1.3); Monocytes % 12.4 %; Platelet Count 226 K/mcL (140-400); Red Cell Distribution Width 11.5 % (11.5-14.5); Segmented Neutrophils % 70.5 %; White Blood Count 5.7 K/mcL (4.3-11.1)
[2021-05-06 16:59] LABS: BUN/Creatinine Ratio 37 (6-26); Blood Urea Nitrogen 13 mg/dL (6-20); Calcium 8.4 mg/dL (8.6-10.3); Carbon Dioxide 28 mEq/L (23-29); Chloride 99 mEq/L (98-107); Glucose 118 mg/dL (70-105); Osmolality,Calculated 279 (280-300); Potassium 3.5 mEq/L (3.5-5.1); Sodium 134 mEq/L (136-145); eGFR For African Americans > 60 (> 60); eGFR For Non-African Americans > 60 (> 60)
[2021-05-07 07:17] LABS: Basophils % 0.4 %; Eosinophils # 0.3 K/mcL (0.0-0.6); Eosinophils % 5.3 %; Hematocrit 27.2 % (35.3-44.9); Hemoglobin 8.8 g/dL (11.5-15.4); Immature Granulocytes % 0.8 % (0-4); Lymphocytes % 18.8 %; Mean Corpuscular HGB Conc 32.4 g/dL (31.6-35.5); Mean Corpuscular Hemoglobin 33.1 pg (28.0-33.3); Mean Corpuscular Volume 102.3 fL (83.0-100.0); Mean Platelet Volume 9.8 fL (9.4-12.4); Monocytes # 0.6 K/mcL (0.0-1.3); Monocytes % 12.3 %; Neutrophils # 3.2 K/mcL (1.6-8.9); Platelet Count 272 K/mcL (140-400); Red Blood Count 2.66 M/mcL (3.82-4.97); Red Cell Distribution Width 11.8 % (11.5-14.5); Segmented Neutrophils % 62.4 %; White Blood Count 5.1 K/mcL (4.3-11.1)
[2021-05-07 07:38] LABS: BUN/Creatinine Ratio 21 (6-26); Blood Urea Nitrogen 10 mg/dL (6-20); Calcium 8.7 mg/dL (8.6-10.3); Carbon Dioxide 28 mEq/L (23-29); Chloride 104 mEq/L (98-107); Glucose 116 mg/dL (70-105); Osmolality,Calculated 288 (280-300); Potassium 3.4 mEq/L (3.5-5.1); Sodium 139 mEq/L (136-145); eGFR For African Americans > 60 (> 60); eGFR For Non-African Americans > 60 (> 60)
[2021-05-07] MEDS: Metoprolol XL (24 HR) Succ 50 MG TAB.ER.24H PO SCH (07:38)
[2021-05-07] MEDS: tiZANidine 4 MG TABLET PO SCH ×3 (07:38→21:37)
[2021-05-07] MEDS: Apixaban 5 MG TABLET PO SCH ×2 (07:38→21:37)
[2021-05-07] MEDS: Nicotine 21 MG PATCH.TD24 TD SCH (07:39)
[2021-05-07] MEDS: Gabapentin 300 MG CAPSULE PO SCH ×3 (07:39→21:37)
[2021-05-07] MEDS: *HR* OxyCODONE Immed Rel 5 MG TABLET PO PRN ×3 (09:28→22:17)
[2021-05-07] MEDS: Ringers Solution, Lactated 1,000 ML IVC SCH (10:30)
[2021-05-07] MEDS: hydrOXYzine pamoate 25 MG CAPSULE PO PRN ×2 (12:26→22:17)
[2021-05-07] MEDS ORDERED: *HR* HYDROmorphone (PF) 1 MG/ML SYRINGE IVP ONE (12:37)
[2021-05-08] MEDS: Apixaban 5 MG TABLET PO SCH (07:49)
[2021-05-08] MEDS: Metoprolol XL (24 HR) Succ 50 MG TAB.ER.24H PO SCH (07:49)
[2021-05-08] MEDS: tiZANidine 4 MG TABLET PO SCH ×3 (07:50→20:19)
[2021-05-08] MEDS: Gabapentin 300 MG CAPSULE PO SCH ×3 (07:50→20:19)
[2021-05-08] MEDS: Nicotine 21 MG PATCH.TD24 TD SCH (07:50)
[2021-05-08 08:57] LABS: Adenovirus Not Detected (Not Detect); Bordetella Pertussis Not Detected (Not Detect); Chlamydophila pneumoniae Not Detected (Not Detect); Coronavirus 229E Not Detected (Not Detect); Coronavirus HKU1 Not Detected (Not Detect); Coronavirus NL63 Not Detected (Not Detect); Coronavirus OC43 Not Detected (Not Detect); Human Metapneumovirus Not Detected (Not Detect); Human Rhinovirus/Enterovirus Not Detected (Not Detect); Influenza A Subtype 2009 H1 Not Detected (Not Detect); Influenza B Not Detected (Not Detect); Mycoplasma pneumoniae Not Detected (Not Detect); Parainfluenza Virus 1 Not Detected (Not Detect); Parainfluenza Virus 2 Not Detected (Not Detect); Parainfluenza Virus 3 Not Detected (Not Detect); Parainfluenza Virus 4 Not Detected (Not Detect); Respiratory Syncytial Virus Not Detected (Not Detect); SARS-CoV-2 Not Detected (Not Detect)
[2021-05-08] MEDS: *HR* OxyCODONE Immed Rel 5 MG TABLET PO PRN ×3 (14:57→22:28)
[2021-05-08] MEDS: Ringers Solution, Lactated 1,000 ML IVC SCH (15:28)
[2021-05-08 18:50] VITALS: BP 123/84; PULSE 83; TEMP 97.4; O2SAT 99
[2021-05-08] MEDS: hydrOXYzine pamoate 25 MG CAPSULE PO PRN (18:56)
[2021-05-08] MEDS ORDERED: Apixaban 5 MG TABLET PO SCH (21:00)
== END 2021-05-08 23:00 | DRG 481 ==
LOC: 4WAOSI 11:01 → EMEROOARM 11:01 → SUATTDRO 15:03 → 4WAOSI 16:51
PROVIDERS: ADMIT Hospitalist; ATTEND Family Medicine

== ENCOUNTER 2021-06-11 15:15 | Inpatient (IN) ==
[2021-06-11 16:19] LABS: Basophils % 0.1 %; Eosinophils % 0.2 %; Hematocrit 37.3 % (35.3-44.9); Immature Granulocytes % 0.2 % (0-4); Lymphocytes # 0.7 K/mcL (0.6-4.6); Lymphocytes % 8.1 %; Mean Corpuscular HGB Conc 34.9 g/dL (31.6-35.5); Mean Corpuscular Hemoglobin 35.1 pg (28.0-33.3); Mean Corpuscular Volume 100.8 fL (83.0-100.0); Mean Platelet Volume 9.1 fL (9.4-12.4); Monocytes # 0.4 K/mcL (0.0-1.3); Monocytes % 4.9 %; Neutrophils # 6.9 K/mcL (1.6-8.9); Platelet Count 414 K/mcL (140-400); Red Cell Distribution Width 12.6 % (11.5-14.5); Segmented Neutrophils % 86.5 %
[2021-06-11 16:32] LABS: INR 1.7
[2021-06-11 16:44] LABS: BUN/Creatinine Ratio 24 (6-26); Blood Urea Nitrogen 10 mg/dL (6-20); Calcium 9.3 mg/dL (8.6-10.3); Carbon Dioxide 27 mEq/L (23-29); Chloride 100 mEq/L (98-107); Glucose 112 mg/dL (70-105); Osmolality,Calculated 284 (280-300); Potassium 3.1 mEq/L (3.5-5.1); Sodium 137 mEq/L (136-145); eGFR For African Americans > 60 (> 60); eGFR For Non-African Americans > 60 (> 60)
[2021-06-11 16:52] LABS: Troponin I < 0.03 ng/mL (< 0.04)
[2021-06-11] MEDS ORDERED: Isovue-370 500 ML BOTTLE IVP ONE (17:18)
[2021-06-11 18:20] LABS: Influenza A PCR Negative (Negative); Influenza B PCR Negative (Negative); Resp. Syncytial Virus PCR Negative (Negative)
[2021-06-11 18:24] LABS: SARS-CoV-2 by PCR (In House) Positive (Negative)
[2021-06-11] MEDS ORDERED: diazePAM 10 MG/2 ML SYRINGE IVP STA (21:12)
[2021-06-12] MEDS ORDERED: Ondansetron 4 MG/2 ML VIAL IVP ONE (00:15)
[2021-06-12] MEDS ORDERED: Dexamethasone Sodium Phos/PF 10 MG/ML VIAL IVP ONE (00:55)
[2021-06-12 01:00] LABS: Magnesium 1.7 mg/dL (1.6-2.6)
[2021-06-12 01:01] LABS: Troponin I < 0.03 ng/mL (< 0.04)
[2021-06-12] MEDS ORDERED: Melatonin 3 MG TABLET PO PRN (01:55)
[2021-06-12] MEDS ORDERED: Naloxone 0.4 MG/ML INJ IVP PRN (01:55)
[2021-06-12] MEDS ORDERED: *HR* Promethazine 25 MG/ML VIAL IM PRN (01:55)
[2021-06-12 03:03] LABS: Basophils % 0.1 %; Hematocrit 33.6 % (35.3-44.9); Hemoglobin 11.7 g/dL (11.5-15.4); Immature Granulocytes % 0.4 % (0-4); Lymphocytes # 0.8 K/mcL (0.6-4.6); Lymphocytes % 11.9 %; Mean Corpuscular HGB Conc 34.8 g/dL (31.6-35.5); Mean Corpuscular Hemoglobin 35.9 pg (28.0-33.3); Mean Corpuscular Volume 103.1 fL (83.0-100.0); Mean Platelet Volume 9.2 fL (9.4-12.4); Monocytes # 0.4 K/mcL (0.0-1.3); Monocytes % 5.1 %; Neutrophils # 5.8 K/mcL (1.6-8.9); Platelet Count 370 K/mcL (140-400); Red Blood Count 3.26 M/mcL (3.82-4.97); Red Cell Distribution Width 12.5 % (11.5-14.5); Segmented Neutrophils % 82.5 %; White Blood Count 7.1 K/mcL (4.3-11.1)
[2021-06-12] MEDS ORDERED: Potassium Chloride Elixir 20 MEQ/15 ML UDC PO ONE (03:12)
[2021-06-12 03:15] LABS: INR 1.4; Prothrombin Time 15.9 Seconds (9.4-12.1)
[2021-06-12 03:16] LABS: Alanine Aminotransferase 8 Units/L (7-52); Albumin 3.6 g/dL (3.5-5.7); Albumin/Globulin Ratio 1.1 (1.1-2.2); Alkaline Phosphatase 25 Units/L (34-104); Aspartate Amino Transferase 14 Units/L (13-39); BUN/Creatinine Ratio 23 (6-26); Bilirubin,Total 0.5 mg/dL (0.3-1.0); Blood Urea Nitrogen 8 mg/dL (6-20); C-Reactive Protein 46 mg/L (Less than 10); Calcium 8.9 mg/dL (8.6-10.3); Carbon Dioxide 21 mEq/L (23-29); Chloride 104 mEq/L (98-107); Globulin 3.2 g/dL (2.4-3.5); Glucose 106 mg/dL (70-105); Lactate Dehydrogenase 198 Units/L (140-271); Osmolality,Calculated 283 (280-300); Potassium 3.7 mEq/L (3.5-5.1); Sodium 137 mEq/L (136-145); Total Protein 6.8 g/dL (6.4-8.9); eGFR For African Americans > 60 (> 60); eGFR For Non-African Americans > 60 (> 60)
[2021-06-12 03:33] LABS: Ferritin 276 ng/mL (10-120)
[2021-06-12] MEDS ORDERED: Prochlorperazine 10 MG/2 ML VIAL IVP ONE (03:48)
[2021-06-12] MEDS ORDERED: Acetaminophen 325 MG TABLET PO PRN (07:56)
[2021-06-12] MEDS: Potassium Chloride Elixir 20 MEQ/15 ML UDC PO SCH (09:03)
[2021-06-12] MEDS: Dexamethasone Sodium Phos/PF 10 MG/ML VIAL IVP SCH (09:05)
[2021-06-12] MEDS: Metoprolol XL (24 HR) Succ 50 MG TAB.ER.24H PO SCH (09:05)
[2021-06-12] MEDS: Apixaban 5 MG TABLET PO SCH ×2 (09:05→20:02)
[2021-06-12] MEDS ORDERED: *HR* OxyCODONE Immed Rel 5 MG TABLET PO ONE (09:54)
[2021-06-12] MEDS: Ondansetron 4 MG/2 ML VIAL IVP PRN (10:24)
[2021-06-12] MEDS: Ipratropium 1 PUFF INHALER IH SCH ×5 (11:23→23:43)
[2021-06-12] MEDS: Gabapentin 300 MG CAPSULE PO SCH (20:01)
[2021-06-12] MEDS: *HR* OxyCODONE Immed Rel 5 MG TABLET PO PRN (20:01)
[2021-06-13 01:59] LABS: Basophils % 0.1 %; Hematocrit 35.9 % (35.3-44.9); Hemoglobin 12.2 g/dL (11.5-15.4); Immature Granulocytes % 0.7 % (0-4); Lymphocytes # 0.7 K/mcL (0.6-4.6); Lymphocytes % 7.5 %; Mean Corpuscular Hemoglobin 34.6 pg (28.0-33.3); Mean Corpuscular Volume 101.7 fL (83.0-100.0); Mean Platelet Volume 9.5 fL (9.4-12.4); Monocytes # 0.3 K/mcL (0.0-1.3); Monocytes % 3.2 %; Neutrophils # 8.1 K/mcL (1.6-8.9); Platelet Count 432 K/mcL (140-400); Red Blood Count 3.53 M/mcL (3.82-4.97); Red Cell Distribution Width 12.7 % (11.5-14.5); Segmented Neutrophils % 88.5 %; White Blood Count 9.1 K/mcL (4.3-11.1)
[2021-06-13 02:19] LABS: BUN/Creatinine Ratio 23 (6-26); Blood Urea Nitrogen 10 mg/dL (6-20); Calcium 9.5 mg/dL (8.6-10.3); Carbon Dioxide 19 mEq/L (23-29); Chloride 106 mEq/L (98-107); Glucose 148 mg/dL (70-105); Osmolality,Calculated 282 (280-300); Potassium 4.2 mEq/L (3.5-5.1); Sodium 135 mEq/L (136-145); eGFR For African Americans > 60 (> 60); eGFR For Non-African Americans > 60 (> 60)
[2021-06-13] MEDS: Ipratropium 1 PUFF INHALER IH SCH ×6 (03:40→23:39)
[2021-06-13] MEDS: Apixaban 5 MG TABLET PO SCH ×2 (07:38→20:13)
[2021-06-13] MEDS: Metoprolol XL (24 HR) Succ 50 MG TAB.ER.24H PO SCH (07:38)
[2021-06-13] MEDS: Gabapentin 300 MG CAPSULE PO SCH ×3 (07:38→20:13)
[2021-06-13] MEDS: *HR* OxyCODONE Immed Rel 5 MG TABLET PO PRN ×3 (07:38→20:13)
[2021-06-13] MEDS: Potassium Chloride Elixir 20 MEQ/15 ML UDC PO SCH (07:38)
[2021-06-13] MEDS: Dexamethasone Sodium Phos/PF 10 MG/ML VIAL IVP SCH (07:39)
[2021-06-13] MEDS: Ondansetron 4 MG/2 ML VIAL IVP PRN (07:57)
[2021-06-13] MEDS ORDERED: Furosemide 20 MG/2 ML VIAL IVP ONE (13:02)
[2021-06-14 02:57] LABS: Basophils % 0.1 %; Hemoglobin 11.8 g/dL (11.5-15.4); Immature Granulocytes % 0.8 % (0-4); Lymphocytes # 0.9 K/mcL (0.6-4.6); Lymphocytes % 7.3 %; Mean Corpuscular HGB Conc 32.8 g/dL (31.6-35.5); Mean Corpuscular Volume 100.6 fL (83.0-100.0); Mean Platelet Volume 9.2 fL (9.4-12.4); Monocytes # 0.7 K/mcL (0.0-1.3); Monocytes % 5.5 %; Platelet Count 463 K/mcL (140-400); Red Blood Count 3.58 M/mcL (3.82-4.97); Red Cell Distribution Width 12.7 % (11.5-14.5); Segmented Neutrophils % 86.3 %; White Blood Count 12.8 K/mcL (4.3-11.1)
[2021-06-14 03:19] LABS: Alanine Aminotransferase 8 Units/L (7-52); Albumin 3.9 g/dL (3.5-5.7); Albumin/Globulin Ratio 1.2 (1.1-2.2); Alkaline Phosphatase 29 Units/L (34-104); Aspartate Amino Transferase 13 Units/L (13-39); BUN/Creatinine Ratio 38 (6-26); Bilirubin,Total 0.4 mg/dL (0.3-1.0); Blood Urea Nitrogen 18 mg/dL (6-20); Calcium 9.2 mg/dL (8.6-10.3); Carbon Dioxide 27 mEq/L (23-29); Chloride 103 mEq/L (98-107); Globulin 3.2 g/dL (2.4-3.5); Glucose 120 mg/dL (70-105); Osmolality,Calculated 283 (280-300); Sodium 135 mEq/L (136-145); Total Protein 7.1 g/dL (6.4-8.9); eGFR For African Americans > 60 (> 60); eGFR For Non-African Americans > 60 (> 60)
[2021-06-14] MEDS: Ipratropium 1 PUFF INHALER IH SCH ×5 (03:52→19:55)
[2021-06-14] MEDS: Apixaban 5 MG TABLET PO SCH ×2 (08:59→20:22)
[2021-06-14] MEDS: Metoprolol XL (24 HR) Succ 50 MG TAB.ER.24H PO SCH (08:59)
[2021-06-14] MEDS: Dexamethasone Sodium Phos/PF 10 MG/ML VIAL IVP SCH (09:00)
[2021-06-14] MEDS: Potassium Chloride Elixir 20 MEQ/15 ML UDC PO SCH (09:00)
[2021-06-14] MEDS: Gabapentin 300 MG CAPSULE PO SCH ×3 (09:00→20:22)
[2021-06-14] MEDS: *HR* OxyCODONE Immed Rel 5 MG TABLET PO PRN ×2 (14:39→20:23)
[2021-06-14] MEDS ORDERED: hydrOXYzine pamoate 25 MG CAPSULE PO ONE (19:48)
[2021-06-15] MEDS: Ipratropium 1 PUFF INHALER IH SCH ×7 (00:20→23:21)
[2021-06-15 05:22] LABS: Basophils % 0.2 %; Hematocrit 34.2 % (35.3-44.9); Hemoglobin 11.4 g/dL (11.5-15.4); Immature Granulocytes % 0.4 % (0-4); Lymphocytes # 1.1 K/mcL (0.6-4.6); Lymphocytes % 8.3 %; Mean Corpuscular HGB Conc 33.3 g/dL (31.6-35.5); Mean Corpuscular Hemoglobin 33.6 pg (28.0-33.3); Mean Corpuscular Volume 100.9 fL (83.0-100.0); Mean Platelet Volume 9.3 fL (9.4-12.4); Monocytes # 0.8 K/mcL (0.0-1.3); Monocytes % 6.3 %; Neutrophils # 11.1 K/mcL (1.6-8.9); Platelet Count 438 K/mcL (140-400); Red Blood Count 3.39 M/mcL (3.82-4.97); Red Cell Distribution Width 12.5 % (11.5-14.5); Segmented Neutrophils % 84.8 %; White Blood Count 13.1 K/mcL (4.3-11.1)
[2021-06-15 05:46] LABS: BUN/Creatinine Ratio 44 (6-26); Blood Urea Nitrogen 18 mg/dL (6-20); Calcium 9.2 mg/dL (8.6-10.3); Carbon Dioxide 26 mEq/L (23-29); Chloride 104 mEq/L (98-107); Glucose 107 mg/dL (70-105); Osmolality,Calculated 292 (280-300); Potassium 3.7 mEq/L (3.5-5.1); Sodium 140 mEq/L (136-145); eGFR For African Americans > 60 (> 60); eGFR For Non-African Americans > 60 (> 60)
[2021-06-15] MEDS: Metoprolol XL (24 HR) Succ 50 MG TAB.ER.24H PO SCH (08:44)
[2021-06-15] MEDS: Gabapentin 300 MG CAPSULE PO SCH ×3 (08:45→20:20)
[2021-06-15] MEDS: Apixaban 5 MG TABLET PO SCH ×2 (08:45→20:20)
[2021-06-15] MEDS: *HR* OxyCODONE Immed Rel 5 MG TABLET PO PRN ×2 (08:46→20:30)
[2021-06-15] MEDS: Potassium Chloride Elixir 20 MEQ/15 ML UDC PO SCH (08:47)
[2021-06-15] MEDS: Dexamethasone Sodium Phos/PF 10 MG/ML VIAL IVP SCH (09:08)
[2021-06-15] MEDS ORDERED: Furosemide 20 MG/2 ML VIAL IVP ONE (14:38)
[2021-06-15] MEDS: hydrOXYzine pamoate 25 MG CAPSULE PO SCH ×2 (16:02→20:20)
[2021-06-16 02:11] LABS: Basophils % 0.2 %; Hematocrit 34.8 % (35.3-44.9); Hemoglobin 11.5 g/dL (11.5-15.4); Immature Granulocytes % 0.7 % (0-4); Lymphocytes # 0.9 K/mcL (0.6-4.6); Lymphocytes % 7.3 %; Mean Corpuscular Hemoglobin 32.9 pg (28.0-33.3); Mean Corpuscular Volume 99.4 fL (83.0-100.0); Mean Platelet Volume 9.2 fL (9.4-12.4); Monocytes # 0.8 K/mcL (0.0-1.3); Monocytes % 6.4 %; Platelet Count 429 K/mcL (140-400); Red Cell Distribution Width 12.5 % (11.5-14.5); Segmented Neutrophils % 85.4 %; White Blood Count 12.9 K/mcL (4.3-11.1)
[2021-06-16 02:21] LABS: BUN/Creatinine Ratio 43 (6-26); Blood Urea Nitrogen 19 mg/dL (6-20); Calcium 8.9 mg/dL (8.6-10.3); Carbon Dioxide 29 mEq/L (23-29); Chloride 102 mEq/L (98-107); Glucose 129 mg/dL (70-105); Osmolality,Calculated 284 (280-300); Potassium 3.8 mEq/L (3.5-5.1); Sodium 135 mEq/L (136-145); eGFR For African Americans > 60 (> 60); eGFR For Non-African Americans > 60 (> 60)
[2021-06-16] MEDS: Ipratropium 1 PUFF INHALER IH SCH ×6 (03:20→23:44)
[2021-06-16] MEDS: *HR* OxyCODONE Immed Rel 5 MG TABLET PO PRN ×3 (09:29→23:09)
[2021-06-16] MEDS: Potassium Chloride Elixir 20 MEQ/15 ML UDC PO SCH (09:29)
[2021-06-16] MEDS: Gabapentin 300 MG CAPSULE PO SCH ×3 (09:29→21:36)
[2021-06-16] MEDS: Metoprolol XL (24 HR) Succ 50 MG TAB.ER.24H PO SCH (09:30)
[2021-06-16] MEDS: Dexamethasone Sodium Phos/PF 10 MG/ML VIAL IVP SCH (09:30)
[2021-06-16] MEDS: Apixaban 5 MG TABLET PO SCH ×2 (09:30→21:36)
[2021-06-16] MEDS: hydrOXYzine pamoate 25 MG CAPSULE PO SCH ×3 (09:30→21:37)
[2021-06-17] MEDS: Ipratropium 1 PUFF INHALER IH SCH ×6 (03:39→23:39)
[2021-06-17 04:44] LABS: Alanine Aminotransferase 9 Units/L (7-52); Albumin 3.8 g/dL (3.5-5.7); Albumin/Globulin Ratio 1.2 (1.1-2.2); Alkaline Phosphatase 37 Units/L (34-104); Aspartate Amino Transferase 10 Units/L (13-39); BUN/Creatinine Ratio 24 (6-26); Bilirubin,Total 0.3 mg/dL (0.3-1.0); Blood Urea Nitrogen 11 mg/dL (6-20); Calcium 8.8 mg/dL (8.6-10.3); Carbon Dioxide 26 mEq/L (23-29); Chloride 103 mEq/L (98-107); Globulin 3.3 g/dL (2.4-3.5); Glucose 127 mg/dL (70-105); Osmolality,Calculated 283 (280-300); Potassium 3.3 mEq/L (3.5-5.1); Sodium 136 mEq/L (136-145); Total Protein 7.1 g/dL (6.4-8.9); eGFR For African Americans > 60 (> 60); eGFR For Non-African Americans > 60 (> 60)
[2021-06-17 04:46] LABS: Basophils % 0.1 %; Hematocrit 35.4 % (35.3-44.9); Hemoglobin 11.6 g/dL (11.5-15.4); Immature Granulocytes % 0.7 % (0-4); Lymphocytes # 1.1 K/mcL (0.6-4.6); Lymphocytes % 9.1 %; Mean Corpuscular HGB Conc 32.8 g/dL (31.6-35.5); Mean Corpuscular Volume 97.8 fL (83.0-100.0); Mean Platelet Volume 9.1 fL (9.4-12.4); Monocytes # 0.7 K/mcL (0.0-1.3); Monocytes % 5.7 %; Platelet Count 450 K/mcL (140-400); Red Blood Count 3.62 M/mcL (3.82-4.97); Red Cell Distribution Width 12.5 % (11.5-14.5); Segmented Neutrophils % 84.4 %; White Blood Count 11.9 K/mcL (4.3-11.1)
[2021-06-17] MEDS: *HR* OxyCODONE Immed Rel 5 MG TABLET PO PRN ×3 (06:00→21:16)
[2021-06-17] MEDS ORDERED: Furosemide 20 MG/2 ML VIAL IVP ONE (08:10)
[2021-06-17] MEDS: Metoprolol XL (24 HR) Succ 50 MG TAB.ER.24H PO SCH (08:25)
[2021-06-17] MEDS: hydrOXYzine pamoate 25 MG CAPSULE PO SCH ×3 (08:25→21:13)
[2021-06-17] MEDS: Apixaban 5 MG TABLET PO SCH ×2 (08:25→21:12)
[2021-06-17] MEDS: Gabapentin 300 MG CAPSULE PO SCH ×3 (08:25→21:12)
[2021-06-17] MEDS: Dexamethasone Sodium Phos/PF 10 MG/ML VIAL IVP SCH (08:26)
[2021-06-17] MEDS: Potassium Chloride Elixir 20 MEQ/15 ML UDC PO SCH (08:27)
[2021-06-18 02:31] LABS: Basophils % 0.1 %; Hemoglobin 11.5 g/dL (11.5-15.4); Immature Granulocytes % 0.9 % (0-4); Lymphocytes % 7.6 %; Mean Corpuscular HGB Conc 32.9 g/dL (31.6-35.5); Mean Corpuscular Hemoglobin 32.2 pg (28.0-33.3); Mean Platelet Volume 9.4 fL (9.4-12.4); Monocytes # 0.8 K/mcL (0.0-1.3); Monocytes % 5.6 %; Neutrophils # 11.5 K/mcL (1.6-8.9); Platelet Count 437 K/mcL (140-400); Red Blood Count 3.57 M/mcL (3.82-4.97); Red Cell Distribution Width 12.5 % (11.5-14.5); Segmented Neutrophils % 85.8 %; White Blood Count 13.4 K/mcL (4.3-11.1)
[2021-06-18 02:50] LABS: BUN/Creatinine Ratio 31 (6-26); Blood Urea Nitrogen 15 mg/dL (6-20); Calcium 9.1 mg/dL (8.6-10.3); Carbon Dioxide 27 mEq/L (23-29); Chloride 102 mEq/L (98-107); Glucose 120 mg/dL (70-105); Osmolality,Calculated 286 (280-300); Potassium 4.8 mEq/L (3.5-5.1); Sodium 137 mEq/L (136-145); eGFR For African Americans > 60 (> 60); eGFR For Non-African Americans > 60 (> 60)
[2021-06-18] MEDS: Ipratropium 1 PUFF INHALER IH SCH ×4 (03:51→15:53)
[2021-06-18 07:23] VITALS: BP 121/68; PULSE 71; TEMP 98.4
[2021-06-18] MEDS: Dexamethasone Sodium Phos/PF 10 MG/ML VIAL IVP SCH (08:47)
[2021-06-18] MEDS: Apixaban 5 MG TABLET PO SCH (08:47)
[2021-06-18] MEDS: *HR* OxyCODONE Immed Rel 5 MG TABLET PO PRN ×2 (08:47→14:47)
[2021-06-18] MEDS: Metoprolol XL (24 HR) Succ 50 MG TAB.ER.24H PO SCH (08:47)
[2021-06-18] MEDS: Potassium Chloride Elixir 20 MEQ/15 ML UDC PO SCH (08:47)
[2021-06-18] MEDS: hydrOXYzine pamoate 25 MG CAPSULE PO SCH ×2 (08:47→14:44)
[2021-06-18] MEDS: Gabapentin 300 MG CAPSULE PO SCH ×2 (08:47→14:44)
[2021-06-18 12:01] VITALS: O2SAT 96
== END 2021-06-18 16:50 | disposition home health service (06) | DRG 177 ==
LOC: 3BNU 15:15 → EMEROOARM 15:15 → SUATTDRO 06-12 01:27 → 3BNU 06-12 02:17
PROVIDERS: ADMIT Internal Medicine; ATTEND Family Medicine